=== PATIENT | male | born 1970 | race Two or more races ===

== ENCOUNTER 2017-01-08 23:26 | Inpatient (IN) | payer OTHER ==
[~2017-01-08] VITALS: Ht 175.3 cm; Wt 79.9 kg
[2017-01-09] MEDS ORDERED: BISACODYL 10 MG SUPP PR PRN (00:30)
[2017-01-09] MEDS ORDERED: POLYETHYLENE GLYCOL 17 GM PACKET PO PRN (00:30)
[2017-01-09] MEDS ORDERED: ONDANSETRON 2MG/ML, 2ML IVPush PRN (00:30)
[2017-01-09] MEDS ORDERED: ACETAMINOPHEN 325 MG TABLET PO PRN (00:30)
[2017-01-09] MEDS: HEPARIN 5,000 UNITS/ML, 1ML SQ SCH ×2 (01:02→01:04)
[2017-01-09 01:05] VITALS: BP 126/84
[2017-01-09 01:28] LABS: IS PT STATUS REG ER OR PRE ER? NO
[2017-01-09 03:27] VITALS: BP 121/70
[2017-01-09 07:39] LABS: ASPARTATE AMINO TRANSFERASE 21 U/L (15-37); BLOOD UREA NITROGEN 11 mg/dL (7-18)
[2017-01-09 07:47] LABS: IS PT STATUS REG ER OR PRE ER? NO
[2017-01-09 08:00] VITALS: BP 125/66
[2017-01-09] MEDS ORDERED: REGADENOSON 0.4 MG/5 ML SYRINGE ONE (08:47)
[2017-01-09] MEDS ORDERED: SENNA/DOCUSATE TABLET PO SCH (09:00)
[2017-01-09] MEDS ORDERED: SODIUM CHLORIDE FLUSH 10ML SYR IVF SCH (09:00)
[2017-01-09] MEDS ORDERED: LOSA25TA5 PO (12:09)
[2017-01-09] MEDS ORDERED: CARV6.252 PO (12:09)
[2017-01-09 14:30] VITALS: BP 119/78
[2017-01-09] MEDS ORDERED: SPIR25TA PO (15:12)
== END 2017-01-09 16:43 | disposition home or self-care (01) | DRG 204 ==
LOC: 5SO 23:28 → DCLOUNGE 01-09 16:15
DX: R06.02 Shortness of breath (principal); I50.22 Chronic systolic (congestive) heart failure; I35.1 Nonrheumatic aortic (valve) insufficiency; Z91.041 Radiographic dye allergy status; Z82.49 Family history of ischemic heart disease and other diseases of the circulatory system
CPT/HCPCS: 36415; 78452; 80053; 84484; 85025; 93017; 93306; J1644; J2785; A9502; C9898